=== PATIENT | female | born 1955 | race Caucasian/White ===

== ENCOUNTER 2017-09-03 15:51 | Emergency (ER) | payer BC, OTHER ==
[~2017-09-03] VITALS: Ht 167.6 cm; Wt 81.6 kg
[2017-09-03 16:01] VITALS: BP_SYST 156
[2017-09-03] MEDS ORDERED: TETRACAINE HCL 0.5% OPHTHALMIC DROPS 15 ML OP ONE (16:30)
[2017-09-03 17:56] VITALS: BP_SYST 148
== END 2017-09-03 17:56 | disposition home or self-care (01) ==
LOC: SED 15:51
DX: S05.01XA Injury of conjunctiva and corneal abrasion without foreign body, right eye, initial encounter (principal); W22.8XXA Striking against or struck by other objects, initial encounter; Y93.89 Activity, other specified; Y92.89 Other specified places as the place of occurrence of the external cause; Y99.8 Other external cause status
CPT/HCPCS: 99283